=== PATIENT | male | born 1985 | race Caucasian/White ===

== ENCOUNTER → 2020-02-27 17:29 | Outpatient (CLI) | payer OTHER, SELFPAY | PROVIDERS: PCP Family Medicine; Referring Provider Nurse Practitioner Primary Care; Visit Provider Nurse Practitioner Primary Care | DX: Z11.59 Encounter for screening for other viral diseases (principal) | CPT/HCPCS: 87635; U0003 ==

== ENCOUNTER 2020-10-25 14:35 | Outpatient (RCR) | payer OTHER, SELFPAY | END 2021-01-07 23:59 | LOC: IMMUN 14:35 | PROVIDERS: PCP Family Medicine; Visit Provider Family Medicine | DX: Z23 Encounter for immunization (principal) | CPT/HCPCS: 0001A; 0002A; 91300 ==